=== PATIENT | female | born 1965 | race Caucasian/White ===

== ENCOUNTER → 2017-10-27 | Outpatient (CLI) | payer OTHER ==
[~2017-10-27] MED LIST: ALBU90OI INH; ALBU90OI61 INH; AMIT50; AMIT50 PO; AMOX500 PO; AMPDEX10; AMPDEX10 PO; AMPDEX10CR PO; AMPDEX5; ATEN25 PO; ATEN50; ATEN50 PO; BENTYL20 MG PO; BUTONI; CEPH500 PO; CIPR250 PO; CYCL10 PO; DEXA2 PO; DICY20 PO; DIPH50 PO; DOXY100 PO; ERGO400 PO; ESCI20 PO; ESZO1 PO; ESZO3 PO; FAMO20 PO; HYDMOR2 PO; HYDMOR3S PR; HYDMOR4 PO; HYOS.125 SL; INDO50 PO; Imitrex100 MG PO; Imitrex4 MG/0.5 M SQ; LEVO-T175 MCG; LEVO-T175 MCG PO; LEVOTHYROXINE; LEVSOD100 PO; LEVSOD125 PO; LEVSOD150 PO; LEVSOD25; LOPE2C PO; METO10 PO; MORP10S; MORP10S PR; NAPR500; NAPR500 PO; NAPR550 PO; ONDA4 PO; ONDA4ODT; ONDA8ODT MM; OSCIMIN SL0.125 MG SL; OXYACE5T PO; OXYC10TA19 PO; OXYC5 PO; PRED10 PO; PRED20 PO; PREG75 PO; PROM25; PROM25 PO; PROM25S PR; PROP120ER; Prednisone20 MG PO; RANI150 PO; RXNAPNA550 PO; RXOXYACE PO; SULTRIDS PO; SUMA25 PO; SUMA6I; SUMA6I SC; SUMATRIPTAN; SUMATRIPTAN SQ; Synthroid50 MCG PO; TOPAMAX; TOPI25; TRAM50 PO; Tenormin50 MG PO; ZOLP10 PO; Zocor PO; Zofran Odt4 MG SL; [UNRECOGNIZED DRUG - OTHER]; [UNRECOGNIZED DRUG - REMARK]
== END | disposition home or self-care (01) ==
LOC: PLD 07:22
DX: R31.9 Hematuria, unspecified (principal)
CPT/HCPCS: 88108

== ENCOUNTER 2017-11-24 07:00 | Emergency (ER) | payer OTHER ==
[~2017-11-24] VITALS: Ht 175.3 cm; Wt 124.7 kg
[~2017-11-24 07:00] MED LIST changes: -AMPDEX10 PO; -Imitrex100 MG PO; -LEVO-T175 MCG PO; -Synthroid50 MCG PO; -Tenormin50 MG PO
[2017-11-24] MEDS ORDERED: Imitrex100 MG PO (07:29)
[2017-11-24] MEDS ORDERED: AMPDEX10 PO (07:29)
[2017-11-24] MEDS ORDERED: ESZO3 PO (07:32)
[2017-11-24 09:29] LABS: Anion Gap 8 mmol/L (6-16); Blood Urea Nitrogen 8 mg/dL (8-24); Bun/Creatinine Ratio 9.2 (12.0-20.0); CO2, Blood 20 mmol/L (21-32); Calcium, Blood 9.1 mg/dL (8.5-10.1); Chloride, Blood 109 mmol/L (98-108); Creatinine, Blood 0.87 mg/dL (0.40-1.00); Glomerular Filtration Rate >60 (60-); Glucose, Blood 103 mg/dL (70-99); Potassium, Blood 3.7 mmol/L (3.5-5.5); Sodium, Blood 137 mmol/L (136-145)
[2017-11-24 10:06] LABS: BASOPHILS ABSOLUTE AUTO 0.02 K/mm3 (0.00-0.23); BASOPHILS PERCENT AUTO 0 % (0-2); EOSINOPHILS ABSOLUTE AUTO 0.24 K/mm3 (0.00-0.68); EOSINOPHILS PERCENT AUTO 3 % (0-6); Hematocrit 52.1 % (33.0-51.0); Hemoglobin 17.8 g/dL (11.5-16.0); IMMATURE GRAN ABSOLUTE AUTO 0.03 K/mm3 (0.00-0.10); IMMATURE GRAN PERCENT AUTO 0 % (0-1); LYMPHOCYTES ABSOLUTE AUTO 1.38 K/mm3 (0.84-5.20); LYMPHOCYTES PERCENT AUTO 20 % (21-46); MONOCYTES PERCENT AUTO 7 % (4-13); Mean Corpuscular HGB 29.9 pg (26.0-34.0); Mean Corpuscular HGB Conc 34.2 g/dL (31.5-36.5); Mean Corpuscular Volume 87 fL (80-100); NEUTROPHILS PERCENT AUTO 69 % (41-73); RDW Coefficient Variation 13.2 % (11.7-14.2); Red Blood Cell Count 5.96 M/mm3 (3.80-5.20); White Blood Cell Count 7.07 K/mm3 (4.00-11.30)
[2017-11-24] MEDS ORDERED: LEVO-T175 MCG PO (10:06)
[2017-11-24] MEDS ORDERED: ALBU90OI INH (10:06)
[2017-11-24 10:24] LABS: Mean Platelet Volume 10.9 fL (9.1-12.4)
[2018-01-30] MEDS ORDERED: LEVO-T175 MCG PO (22:10)
[2018-03-31] MEDS ORDERED: PROM25 PO (07:40)
[2018-03-31] MEDS ORDERED: CYCL10 PO (10:12)
[2018-07-18] MEDS ORDERED: Tenormin50 MG PO (21:42)
[2018-07-18] MEDS ORDERED: Synthroid50 MCG PO (21:42)
== END 2017-11-24 11:00 | disposition home or self-care (01) ==
LOC: ER 07:00
PROVIDERS: Emergency Medicine
DX: J40 Bronchitis, not specified as acute or chronic (principal); J98.01 Acute bronchospasm; E03.9 Hypothyroidism, unspecified; Z88.8 Allergy status to other drugs, medicaments and biological substances; Z79.899 Other long term (current) drug therapy; G43.909 Migraine, unspecified, not intractable, without status migrainosus
CPT/HCPCS: 36415; 71046; 80048; 84439; 84443; 85025; 94640; 99283

== ENCOUNTER → 2019-01-18 | Outpatient (CLI) | payer OTHER ==
[~2019-01-18] MED LIST changes: +AMPDEX10 PO; +Imitrex100 MG PO; +LEVO-T175 MCG PO; +Synthroid50 MCG PO; +Tenormin50 MG PO
== END | disposition home or self-care (01) ==
LOC: LAB 10:07 → LAB SHORT 10:07
DX: B02.9 Zoster without complications (principal)
CPT/HCPCS: 87254

== ENCOUNTER 2020-09-22 08:36 | Inpatient (IN) | payer OTHER ==
[~2020-09-22] VITALS: Ht 175.3 cm; Wt 141.9 kg
[~2020-09-22 08:36] MED LIST changes: -Imitrex100 MG PO
[2020-09-22] MEDS ORDERED: ATEN50 PO (08:53)
[2020-09-22] MEDS ORDERED: EUTHYROX125 MCG PO (08:53)
[2020-09-22] MEDS ORDERED: ONDA4 SL (08:54)
[2020-09-22] MEDS ORDERED: SUMA25 PO (08:54)
[2020-09-22 09:17] LABS: Source, Urine Clean Catch
[2020-09-22 09:27] LABS: Appearance, Urine Clear (Clear); Bilirubin, Urine Neg (Neg); Blood, Urine 1+ (Neg); Color, Urine Yellow (P-Yellow); Glucose Qualitative, Urine Neg (Neg); Ketones, Urine Neg (Neg); Leukocyte Esterase, Urine 1+ (Neg); Nitrite, Urine Neg (Neg); Protein, Urine Neg (Neg); Urobilinogen, Urine NORM (Normal)
[2020-09-22 09:37] LABS: Bacteria Mod /hpf; Red Blood Cells, Urine 0-2 /hpf (0-2); Squamous Epithelial Cells Few /hpf (Few)
[2020-09-22 10:18] LABS: BASOPHILS ABSOLUTE AUTO 0.03 K/mm3 (0.00-0.23); BASOPHILS PERCENT AUTO 0 % (0-2); EOSINOPHILS ABSOLUTE AUTO 0.03 K/mm3 (0.00-0.68); EOSINOPHILS PERCENT AUTO 0 % (0-6); Hematocrit 51.8 % (33.0-51.0); IMMATURE GRAN ABSOLUTE AUTO 0.07 K/mm3 (0.00-0.10); IMMATURE GRAN PERCENT AUTO 1 % (0-1); LYMPHOCYTES ABSOLUTE AUTO 1.25 K/mm3 (0.84-5.20); LYMPHOCYTES PERCENT AUTO 8 % (21-46); MONOCYTES ABSOLUTE AUTO 0.93 K/mm3 (0.16-1.47); MONOCYTES PERCENT AUTO 6 % (4-13); Mean Corpuscular HGB 30.2 pg (26.0-34.0); Mean Corpuscular HGB Conc 32.8 g/dL (31.5-36.5); Mean Corpuscular Volume 92 fL (80-100); NEUTROPHILS ABSOLUTE AUTO 12.81 K/mm3 (1.96-9.15); NEUTROPHILS PERCENT AUTO 85 % (41-73); RDW Coefficient Variation 13.2 % (11.7-14.2); RDW Standard Deviation 44.4 fL (35.1-46.3); Red Blood Cell Count 5.62 M/mm3 (3.80-5.20); White Blood Cell Count 15.12 K/mm3 (4.00-11.30)
[2020-09-22 10:26] LABS: Mean Platelet Volume 10.2 fL (9.1-12.4); Platelet Count 232 K/mm3 (150-400)
[2020-09-22 10:32] LABS: Alanine Aminotransfer (ALT/SGP 46 U/L (12-78); Albumin, Blood 3.5 g/dL (3.4-5.0); Albumin/Globulin Ratio 0.9 (0.8-1.8); Alk Phos 129 U/L (50-136); Anion Gap 8 mmol/L (6-16); Aspartate Aminotrans (AST/SGOT 25 U/L (12-37); Bilirubin, Total 0.7 mg/dL (0.1-1.0); Blood Urea Nitrogen 15 mg/dL (8-24); Bun/Creatinine Ratio 18.5 (12.0-20.0); CO2, Blood 25 mmol/L (21-32); Calcium, Blood 9.3 mg/dL (8.5-10.1); Chloride, Blood 105 mmol/L (98-108); Creatinine, Blood 0.81 mg/dL (0.40-1.00); Glomerular Filtration Rate >60 (60-); Glucose, Blood 129 mg/dL (70-99); Potassium, Blood 4.1 mmol/L (3.5-5.5); Sodium, Blood 138 mmol/L (136-145); Total Protein, Blood 7.5 g/dL (6.4-8.2)
[2020-09-22] MEDS ORDERED: Imitrex100 MG PO (12:24)
[2020-09-22 17:08] LABS: Campylobacter Sp Not Detected (NOT DETECT); Plesiomonas Shigelloides Not Detected (NOT DETECT)
[2020-09-22 17:09] LABS: Adenovirus F 40/41 Not Detected (NOT DETECT); Astrovirus Not Detected (NOT DETECT); Cryptosporidium Not Detected (NOT DETECT); Cyclospora Cayetanensis Not Detected (NOT DETECT); E. Coli O157 Not Detected (NOT DETECT); Entamoeba Histolytica Not Detected (NOT DETECT); Enteroaggregative E. coli-EAEC Not Detected (NOT DETECT); Enteropathogenic E. coli-EPEC Detected (NOT DETECT); Enterotoxigenic E. coli-ETEC Not Detected (NOT DETECT); Giardia Lamblia Not Detected (NOT DETECT); Norovirus GI/GII Not Detected (NOT DETECT); Rotavirus A Not Detected (NOT DETECT); Salmonella Sp Not Detected (NOT DETECT); Sapovirus Not Detected (NOT DETECT); Shiga Toxin-prod E. coli-STEC Not Detected (NOT DETECT); Shigella/Enteroin E. coli-EIEC Not Detected (NOT DETECT); Vibrio Cholerae Not Detected (NOT DETECT); Vibrio Sp Not Detected (NOT DETECT); Yersinia Enterocolitica Not Detected (NOT DETECT)
--- NOTE | 2020-09-22 17:14 | NUR ---
ER ADMIT APPROX 1300 PT ARRIVE TO VIA GURNEY, ABLE TO AMBULATE IND TO BED. STATE WEAKNESS/FATIGUE X 1 WEEK, STATE LOWER ABDOMINAL PAIN/CRAMPING THAT SHE R/T CONSTIPATION HOWEVER STATE PASSED HARD STOOL THEN 0200 THIS AM SHE HAD BLOODY RED LOOSE STOOLS, DECIDED TO GO TO ER. ROCK DRILL OPERATOR REPORT GAVE IV ANTIBX ROCEPHIN & UNASYN. STATE POOR IV ACCESS TO R HAND & L BREAST. ATTEMPTING TO INFUSE NS @ 2OO ML/HR. SECOND WATCH SERGEANT NOTIFY ICU, NURSES UP TO START L POWERGLIDE IV. PRN FENTANYL 25MCG GIVEN FOR PAIN RELIEF APPROX Q2, ZOFRAN GIVEN FOR NAUSEA RELIEF. PT STATE MIGRAINE H/A, DR GARDNER NOTIFIED, WILL ORDER IMITREX. ICE PACK PROVIDED. GI PANEL/STOOL SAMPLE COLLECTED/SENT, STOOL DRK, LOOSE, RED/BLOODY. VSS. LACTIC ACID WNL @ THIS TIME. PT IS PLEASANT/COOPERATIVE, APPRECIATIVE.
[2020-09-23 04:53] LABS: Hematocrit 48.9 % (33.0-51.0); Hemoglobin 15.5 g/dL (11.5-16.0); Mean Corpuscular HGB Conc 31.7 g/dL (31.5-36.5); Mean Corpuscular Volume 95 fL (80-100); Platelet Count 229 K/mm3 (150-400); RDW Coefficient Variation 13.3 % (11.7-14.2); RDW Standard Deviation 47.1 fL (35.1-46.3); Red Blood Cell Count 5.16 M/mm3 (3.80-5.20); White Blood Cell Count 13.08 K/mm3 (4.00-11.30)
[2020-09-23 05:12] LABS: Anion Gap 4 mmol/L (6-16); Blood Urea Nitrogen 9 mg/dL (8-24); Bun/Creatinine Ratio 10.3 (12.0-20.0); CO2, Blood 30 mmol/L (21-32); Calcium, Blood 9.4 mg/dL (8.5-10.1); Chloride, Blood 107 mmol/L (98-108); Creatinine, Blood 0.87 mg/dL (0.40-1.00); Glomerular Filtration Rate >60 (60-); Glucose, Blood 159 mg/dL (70-99); Potassium, Blood 4.4 mmol/L (3.5-5.5); Sodium, Blood 141 mmol/L (136-145)
--- NOTE | 2020-09-23 05:20 | NUR ---
SUMMARY PT ARRIVED TO ROOM IN NO DISTRESS. PT TX FOR DISCOMFORT PER EMAR. PT HAS SLEPT T/O SHIFT COMFORTABLY. CALL LIGHT IN REACH AND BED ALARM ON.
--- NOTE | 2020-09-23 19:49 | NUR ---
SUMMARY PT CONTINUES TO STATE LOWER ABD CRAMPING PAIN w OCCASIONAL NAUSEA. STOOLS CONTINUE LOOSE/MUCOUSY BLOODY RED. SHE STATE FREQUENCY OF BM'S DECREASED SOMEWHAT FROM PREVIOUS DAY. WBC 13, IV ANTIBX CONT. HAVE GIVEN FENTANYL 50MCG MULT X'S FOR PAIN CONTROL/RELEIF. BP HAS BEEN SOMEWHAT ELEVATED, DR GARDNER RESTART ATENOLOL. SHE HAD MIGRAINE LATE AFTERNOON, PRN IMITREX GIVEN. SHE IS A/O X4, PLEASANT/COOPERATIVE.
--- NOTE | 2020-09-23 22:16 | NUR ---
PT STILL HAVING 8/ MIGRAINE MARTÍNEZ W/ASSOCIATED NAUSEA. NOTIFIED W/RX RECIEVED TO ADMINISTER ADDITIONAL DOSE OF IMMITREX 6 MG SC NOW X1. WILL GIVE W/NAUSEA MEDS WHEN AVAILABLE FROM PHARMACY.
--- NOTE | 2020-09-23 22:20 | NUR ---
DURING ASSESSMENT, PT REPORTED "SORES AND PAIN TO PAULO AREA FROM SCALDING HERSELF W/URINE". SHE DESCRIBED THAT SHE OFTEN WEARS HER SAME PANTS TO BED THAT SHE'S WORN ALL DAY AND OCCASIONALLY HAS INCONTINENCE ISSUES. PT SAID SHE'D MENTIONED THIS TO THE ER STAFF AND USES DESITIN CREAM AT HOME BUT IT'S PROGRESSIVELY WORSENED. PAULO AREA WAS OBSERVED AND SHE APPEARS TO HAVE CELLULITIS (RED, HOT, FIRM) EXTENDING FROM HER L.LABIA POSTERIOR TO HER L.BUTTOCK CHEEK ALONG THE MIDLINE. SHE HAS X2 SMALL SCABS TO THE BASE OF EACH BUTTOCKS POSTERIOR TO HER LABIA. PT DOESN'T HAVE ANY RECOLLECTIONS HOW/WHEN THESE SORES DEVELOPED BUT ADMITTED SHE'D RECENTLY "PICKED AT THEM". THERE WAS NO NOTED DOCUMENTATION OF THESE FINDINGS SO WAS MADE AWARE. TOPICAL CREAM LIKELY WOULDN'T BE SUFFICIENT AND STATED PREVIOUSLY RX'D ROCEPHIN SHOULD BE ADEQUATE TX FOR CELLULITIS. SHE IS SCHEDULED TO HAVE A DOSE AT [facility]. HE DIDN'T ORDER ANYTHING NEW AT THIS TIME BUT WANTS TO ENSURE THE DAY HOSPITALIST IS AWARE FOR F/U DIAGNOSTICS AND TREATMENT. WILL DISCUSS W/DAY RN.
--- NOTE | 2020-09-24 05:31 | NUR ---
SUMMARY: PT A/OX4, PLEASANT AND COOPERATIVE W/CARE AND INDEPENDENT IN ROOM. ABDO PAIN AND NAUSEA ARE PERSISTENT AND SHE NEVER REPORTS BETTER THAN 6/10 PAIN CONTROL. SHE ALSO HAD A MIGRAINE THIS SHIFT W/AN ADDITIONAL DOSE OF IMITREX RX'D BY AND RECIEVED FOR IMPROVED EFFECT. PT REQUIRED FENTANYL 50 MCG IV APPROX Q2-3 HOURS AND SHE KEEPS ICE PACKS TO HER NECK AT ALL TIMES. ALTERNATING DOSES OF REGLAN AND ZOFRAN PROVIDED FOR ONGOING NAUSEA FREQ ABLE PER EMAR. IV ABX GIVEN THEN SL. SHE REMAINS NSR AT 80'S BPM PER TELEMETRY AND TOLERATED CPAP AT HS. NO ACUTE CHANGES. PT BEGAN SHIFT HYPERTENSIVE BUT SHE WAS VERY NAUSEOUS AND PAINFUL AT THE TIME AND BP IMPROVED W/SYMPTOM MANAGEMENT. LATONYA AND REPORT TO DAY RN.
[2020-09-24 06:14] LABS: Hematocrit 47.6 % (33.0-51.0); Hemoglobin 16.1 g/dL (11.5-16.0); Mean Corpuscular HGB 31.2 pg (26.0-34.0); Mean Corpuscular HGB Conc 33.8 g/dL (31.5-36.5); Mean Corpuscular Volume 92 fL (80-100); Mean Platelet Volume 10.3 fL (9.1-12.4); Platelet Count 190 K/mm3 (150-400); RDW Coefficient Variation 13.2 % (11.7-14.2); Red Blood Cell Count 5.16 M/mm3 (3.80-5.20); White Blood Cell Count 11.05 K/mm3 (4.00-11.30)
[2020-09-24 06:34] LABS: Anion Gap 3 mmol/L (6-16); Blood Urea Nitrogen 9 mg/dL (8-24); Bun/Creatinine Ratio 10.5 (12.0-20.0); CO2, Blood 29 mmol/L (21-32); Calcium, Blood 9.4 mg/dL (8.5-10.1); Chloride, Blood 106 mmol/L (98-108); Creatinine, Blood 0.85 mg/dL (0.40-1.00); Glomerular Filtration Rate >60 (60-); Glucose, Blood 139 mg/dL (70-99); Potassium, Blood 3.7 mmol/L (3.5-5.5); Sodium, Blood 138 mmol/L (136-145)
--- NOTE | 2020-09-24 19:18 | NUR ---
SHIFT SUMMARY: PAIN BETTER CONTROLLED THIS AFTERNOON AND EVENING WITH CHANGE OF PAIN MED TO OXYCODONE. DENIED FURTHER NAUSEA AFTER REGLAN DOSE AT ~ 1500. TOLERATING DIET WITHOUT VOMITING, BUT DID ENDORSE SOME PAIN AFTER DINNER. NO EVENTS ON TELEMETRY, SR IN 70-80'S. GAVE IMITREX X 1 FOR MIGRAINE, WHICH PT THINKS WAS BROUGHT ON BY FENTANYL. GETTING UP TO BR INDEPENDENTLY.
--- NOTE | 2020-09-25 04:43 | NUR ---
SHIFT SUMMARY ADMITTED FOR ACUTE COLITIS. FULL CODE. HOPEFUL FOR DC TODAY. PAIN IS CONTROLLED WITH ORAL PAIN MEDICATION. ANTI NAUSEA MEDICATION REQUESTED ONCE THIS SHIFT. TELEMETRY: NSR @ 72 BPM. PT DID C/O MIGRAINE THIS SHIFT, IMITREX GIVEN. POWERGLIDE IS IN PLACE ON LUE. NO NEW CONCERNS THIS SHIFT
[2020-09-25] MEDS ORDERED: Dicyclomine HCl10 MG PO (12:17)
--- NOTE | 2020-09-25 14:52 | NUR ---
PATIENT DISCHARGED TO HOME ACCOMPANIED BY HER DAUGHTER. POWERGLIDE IV REMOVED WITHOUT INCIDENT, NO BLEEDING NOTED. PATIENT VERBALIZED UNDERSTANDING OF ALL D/C INSTRUCTIONS AND ALL QUESTIONS ANSWERED TO HER SATISFACTION. LEFT UNIT VIA W/C AT 1418. NO PERSONAL BELONGINGS LEFT BEHIND IN THE ROOM.
--- NOTE | 2020-09-25 14:58 | NUR ---
Met pt. getting resdy to go home , pt. is dicharged , prayed for her and bleswed her
== END 2020-09-25 14:18 | disposition home or self-care (01) | DRG 872 ==
LOC: ER 08:36 → MEDS 08:37
PROVIDERS: Emergency Medicine; ADMIT Internal Medicine
DX: A41.51 Sepsis due to Escherichia coli [E. coli] (principal); E87.2 Acidosis; A04.4 Other intestinal Escherichia coli infections; E03.9 Hypothyroidism, unspecified; G43.909 Migraine, unspecified, not intractable, without status migrainosus; R65.20 Severe sepsis without septic shock; Z20.828 Contact with and (suspected) exposure to other viral communicable diseases; Z87.891 Personal history of nicotine dependence
CPT/HCPCS: 0097U; 36415; 74177; 80048; 80053; 81001; 83605; 83690; 85025; 85027; 87077; 87086; 87186; 94762; 96365-59; 96366; 96367; 96368; 96375; 96376; 99284-25; C1751; G0378; J0295; J0696; J2405; J2765; J3010; J3030; J7030; Q9967

== ENCOUNTER 2020-12-23 07:40 | Emergency (ER) | payer OTHER ==
[~2020-12-23] VITALS: Ht 170.2 cm; Wt 145.2 kg
[~2020-12-23 07:40] MED LIST changes: +Dicyclomine HCl10 MG PO; +EUTHYROX125 MCG PO; +Imitrex100 MG PO; +ONDA4 SL
[2020-12-23 09:36] LABS: Source, Urine Clean Catch
[2020-12-23 09:41] LABS: BASOPHILS ABSOLUTE AUTO 0.02 K/mm3 (0.00-0.23); BASOPHILS PERCENT AUTO 0 % (0-2); EOSINOPHILS ABSOLUTE AUTO 0.18 K/mm3 (0.00-0.68); EOSINOPHILS PERCENT AUTO 3 % (0-6); Hematocrit 49.8 % (33.0-51.0); Hemoglobin 16.4 g/dL (11.5-16.0); IMMATURE GRAN ABSOLUTE AUTO 0.02 K/mm3 (0.00-0.10); IMMATURE GRAN PERCENT AUTO 0 % (0-1); LYMPHOCYTES ABSOLUTE AUTO 1.63 K/mm3 (0.84-5.20); LYMPHOCYTES PERCENT AUTO 22 % (21-46); MONOCYTES ABSOLUTE AUTO 0.73 K/mm3 (0.16-1.47); MONOCYTES PERCENT AUTO 10 % (4-13); Mean Corpuscular HGB 30.5 pg (26.0-34.0); Mean Corpuscular HGB Conc 32.9 g/dL (31.5-36.5); Mean Corpuscular Volume 93 fL (80-100); Mean Platelet Volume 9.5 fL (9.1-12.4); NEUTROPHILS ABSOLUTE AUTO 4.76 K/mm3 (1.96-9.15); NEUTROPHILS PERCENT AUTO 65 % (41-73); Platelet Count 258 K/mm3 (150-400); RDW Coefficient Variation 12.7 % (11.7-14.2); Red Blood Cell Count 5.38 M/mm3 (3.80-5.20); White Blood Cell Count 7.34 K/mm3 (4.00-11.30)
[2020-12-23 09:47] LABS: Bilirubin, Urine Neg (Neg); Blood, Urine 2+ (Neg); Glucose Qualitative, Urine Neg (Neg); Ketones, Urine Neg (Neg); Leukocyte Esterase, Urine Neg (Neg); Nitrite, Urine Neg (Neg); Protein, Urine Neg (Neg); Urobilinogen, Urine NORM (Normal)
[2020-12-23 09:53] LABS: Appearance, Urine Clear (Clear); Color, Urine Yellow (P-Yellow)
[2020-12-23 09:54] LABS: Red Blood Cells, Urine 0-2 /hpf (0-2)
[2020-12-23 09:55] LABS: Bacteria Mod /hpf; Squamous Epithelial Cells Few /hpf (Few)
[2020-12-23 10:04] LABS: Alanine Aminotransfer (ALT/SGP 44 U/L (12-78); Albumin, Blood 3.5 g/dL (3.4-5.0); Albumin/Globulin Ratio 0.9 (0.8-1.8); Alk Phos 116 U/L (50-136); Anion Gap 5 mmol/L (6-16); Aspartate Aminotrans (AST/SGOT 17 U/L (12-37); Bilirubin, Total 0.6 mg/dL (0.1-1.0); Blood Urea Nitrogen 16 mg/dL (8-24); Bun/Creatinine Ratio 20.6 (12.0-20.0); CO2, Blood 25 mmol/L (21-32); Calcium, Blood 9.7 mg/dL (8.5-10.1); Chloride, Blood 110 mmol/L (98-108); Creatinine, Blood 0.78 mg/dL (0.40-1.00); Globulin, Blood 3.9 g/dL (2.2-4.0); Glomerular Filtration Rate >60 (60-); Glucose, Blood 122 mg/dL (70-99); Potassium, Blood 4.7 mmol/L (3.5-5.5); Sodium, Blood 140 mmol/L (136-145); Total Protein, Blood 7.4 g/dL (6.4-8.2)
[2020-12-23] MEDS ORDERED: Reglan10 MG PO (12:10)
[2020-12-23] MEDS ORDERED: Naprosyn500 MG PO (12:10)
== END 2020-12-23 10:30 | disposition home or self-care (01) ==
LOC: ER 07:40
PROVIDERS: Physician Assistant
DX: R10.30 Lower abdominal pain, unspecified (principal); R11.2 Nausea with vomiting, unspecified; Z87.442 Personal history of urinary calculi; Z79.899 Other long term (current) drug therapy; Z88.8 Allergy status to other drugs, medicaments and biological substances
CPT/HCPCS: 36415; 74177; 80053; 81001; 83690; 85025; 85651; 86140; 87077; 87086; 87186; 96374; 96375; 99285-25; J1170; J1885; J2765; Q9967

== ENCOUNTER 2022-04-08 04:54 | Emergency (ER) | payer OTHER ==
[~2022-04-08] VITALS: Ht 170.2 cm; Wt 138.3 kg
[~2022-04-08 04:54] MED LIST changes: +Adderall 5 MG Ta5 MG PO; +EUTHYROX175 MCG PO; +Naprosyn500 MG PO; +Reglan10 MG PO
[2022-04-08 05:55] LABS: BASOPHILS ABSOLUTE AUTO 0.01 K/mm3 (0.00-0.23); BASOPHILS PERCENT AUTO 0 % (0-2); EOSINOPHILS ABSOLUTE AUTO 0.22 K/mm3 (0.00-0.68); EOSINOPHILS PERCENT AUTO 3 % (0-6); Hematocrit 49.6 % (33.0-51.0); Hemoglobin 16.2 g/dL (11.5-16.0); IMMATURE GRAN ABSOLUTE AUTO 0.02 K/mm3 (0.00-0.10); IMMATURE GRAN PERCENT AUTO 0 % (0-1); LYMPHOCYTES ABSOLUTE AUTO 1.93 K/mm3 (0.84-5.20); LYMPHOCYTES PERCENT AUTO 30 % (21-46); MONOCYTES ABSOLUTE AUTO 0.62 K/mm3 (0.16-1.47); MONOCYTES PERCENT AUTO 10 % (4-13); Mean Corpuscular HGB 29.7 pg (26.0-34.0); Mean Corpuscular HGB Conc 32.7 g/dL (31.5-36.5); Mean Corpuscular Volume 91 fL (80-100); Mean Platelet Volume 9.4 fL (9.1-12.4); NEUTROPHILS ABSOLUTE AUTO 3.67 K/mm3 (1.96-9.15); NEUTROPHILS PERCENT AUTO 57 % (41-73); Platelet Count 269 K/mm3 (150-400); RDW Coefficient Variation 12.8 % (11.7-14.2); RDW Standard Deviation 42.6 fL (35.1-46.3); Red Blood Cell Count 5.46 M/mm3 (3.80-5.20); White Blood Cell Count 6.47 K/mm3 (4.00-11.30)
[2022-04-08 06:03] LABS: Albumin, Blood 3.5 g/dL (3.4-5.0); Albumin/Globulin Ratio 0.9 (0.8-1.8); Bilirubin, Total 0.5 mg/dL (0.1-1.0); Bun/Creatinine Ratio 20.7 (12.0-20.0); Calcium, Blood 10.5 mg/dL (8.5-10.1); Creatinine, Blood 0.68 mg/dL (0.40-1.00); Globulin, Blood 3.7 g/dL (2.2-4.0); Potassium, Blood 4.5 mmol/L (3.5-5.5); Total Protein, Blood 7.2 g/dL (6.4-8.2)
[2022-04-08] MEDS ORDERED: PROBIOTIC1 EA13 PO (07:38)
[2022-04-08] MEDS ORDERED: ONDA4ODT MM (07:38)
[2022-04-08] MEDS ORDERED: CIPR500 PO (07:38)
== END 2022-04-08 09:33 | disposition home or self-care (01) ==
LOC: ER 04:54
PROVIDERS: Emergency Medicine
DX: A09 Infectious gastroenteritis and colitis, unspecified (principal); F90.9 Attention-deficit hyperactivity disorder, unspecified type; Z79.899 Other long term (current) drug therapy
CPT/HCPCS: 74177; 80053; 83690; 85025; J2405; J7030; Q9967

== ENCOUNTER 2022-10-23 15:33 | Emergency (ER) | payer OTHER ==
[~2022-10-23] VITALS: Ht 175.3 cm; Wt 136.1 kg
[~2022-10-23 15:33] MED LIST changes: +CIPR500 PO; +Cleocin HCl150 MG PO; +ONDA4ODT MM; +PROBIOTIC1 EA13 PO
[2022-10-23 16:52] LABS: BASOPHILS ABSOLUTE AUTO 0.02 K/mm3 (0.00-0.23); BASOPHILS PERCENT AUTO 0 % (0-2); EOSINOPHILS ABSOLUTE AUTO 0.21 K/mm3 (0.00-0.68); EOSINOPHILS PERCENT AUTO 3 % (0-6); Hematocrit 52.2 % (33.0-51.0); IMMATURE GRAN ABSOLUTE AUTO 0.03 K/mm3 (0.00-0.10); IMMATURE GRAN PERCENT AUTO 0 % (0-1); LYMPHOCYTES ABSOLUTE AUTO 2.23 K/mm3 (0.84-5.20); LYMPHOCYTES PERCENT AUTO 28 % (21-46); MONOCYTES PERCENT AUTO 8 % (4-13); Mean Corpuscular HGB 30.5 pg (26.0-34.0); Mean Corpuscular HGB Conc 34.5 g/dL (31.5-36.5); Mean Corpuscular Volume 89 fL (80-100); Mean Platelet Volume 9.1 fL (9.1-12.4); NEUTROPHILS ABSOLUTE AUTO 4.85 K/mm3 (1.96-9.15); NEUTROPHILS PERCENT AUTO 61 % (41-73); Platelet Count 275 K/mm3 (150-400); RDW Coefficient Variation 12.5 % (11.7-14.2); RDW Standard Deviation 40.8 fL (35.1-46.3); White Blood Cell Count 7.94 K/mm3 (4.00-11.30)
[2022-10-23 17:12] LABS: Albumin, Blood 3.8 g/dL (3.4-5.0); Bilirubin, Total 0.5 mg/dL (0.1-1.0); Bun/Creatinine Ratio 16.5 (12.0-20.0); Calcium, Blood 10.5 mg/dL (8.5-10.1); Creatinine, Blood 0.73 mg/dL (0.40-1.00); Potassium, Blood 3.9 mmol/L (3.5-5.5); Total Protein, Blood 7.8 g/dL (6.4-8.2)
[2022-10-23 19:36] LABS: Source, Urine Clean Catch
[2022-10-23 20:03] LABS: Appearance, Urine Clear (Clear); Bilirubin, Urine Neg (Neg); Blood, Urine 2+ (Neg); Color, Urine Yellow (P-Yellow); Glucose Qualitative, Urine Neg (Neg); Ketones, Urine Neg (Neg); Leukocyte Esterase, Urine Neg (Neg); Nitrite, Urine Neg (Neg); Protein, Urine 2+ (Neg); Urobilinogen, Urine NORM (Normal)
[2022-10-23 20:10] LABS: Bacteria Mod /hpf; Red Blood Cells, Urine 0-2 /hpf (0-2); Squamous Epithelial Cells Rare /hpf (Few); White Blood Cells, Urine 0-2 /hpf (0-5)
[2022-10-23] MEDS ORDERED: ONDA4ODT MM (21:50)
== END 2022-10-23 22:29 | disposition home or self-care (01) ==
LOC: ER 15:33
PROVIDERS: Physician Assistant
DX: R10.30 Lower abdominal pain, unspecified (principal); R19.7 Diarrhea, unspecified; G47.30 Sleep apnea, unspecified; Z79.899 Other long term (current) drug therapy
CPT/HCPCS: 36415; 74177; 80053; 81001; 85025; A9270; J1885; J2405; J7120; Q9967

== ENCOUNTER → 2022-10-29 | Outpatient (CLI) | payer OTHER ==
[2022-10-29 11:08] LABS: Adenovirus F 40/41 Not Detected (NOT DETECT); Astrovirus Not Detected (NOT DETECT); Campylobacter Sp Not Detected (NOT DETECT); Cryptosporidium Not Detected (NOT DETECT); Cyclospora Cayetanensis Not Detected (NOT DETECT); E. Coli O157 Not Detected (NOT DETECT); Entamoeba Histolytica Not Detected (NOT DETECT); Enteroaggregative E. coli-EAEC Not Detected (NOT DETECT); Enteropathogenic E. coli-EPEC Not Detected (NOT DETECT); Enterotoxigenic E. coli-ETEC Not Detected (NOT DETECT); Giardia Lamblia Not Detected (NOT DETECT); Norovirus GI/GII Not Detected (NOT DETECT); Plesiomonas Shigelloides Not Detected (NOT DETECT); Rotavirus A Not Detected (NOT DETECT); Salmonella Sp Not Detected (NOT DETECT); Sapovirus Not Detected (NOT DETECT); Shiga Toxin-prod E. coli-STEC Not Detected (NOT DETECT); Shigella/Enteroin E. coli-EIEC Not Detected (NOT DETECT); Vibrio Cholerae Not Detected (NOT DETECT); Vibrio Sp Not Detected (NOT DETECT); Yersinia Enterocolitica Not Detected (NOT DETECT)
== END | disposition home or self-care (01) ==
LOC: LAB SHORT 06:50
PROVIDERS: Nurse Practitioner Family
DX: R19.7 Diarrhea, unspecified (principal); R10.9 Unspecified abdominal pain
CPT/HCPCS: 87507

== ENCOUNTER → 2022-11-15 | Outpatient (CLI) | payer OTHER ==
[2022-11-15 11:00] LABS: Adenovirus F 40/41 Not Detected (NOT DETECT); Astrovirus Not Detected (NOT DETECT); Campylobacter Sp Not Detected (NOT DETECT); Cryptosporidium Not Detected (NOT DETECT); Cyclospora Cayetanensis Not Detected (NOT DETECT); E. Coli O157 Not Detected (NOT DETECT); Entamoeba Histolytica Not Detected (NOT DETECT); Enteroaggregative E. coli-EAEC Not Detected (NOT DETECT); Enteropathogenic E. coli-EPEC Not Detected (NOT DETECT); Enterotoxigenic E. coli-ETEC Not Detected (NOT DETECT); Giardia Lamblia Not Detected (NOT DETECT); Norovirus GI/GII Not Detected (NOT DETECT); Plesiomonas Shigelloides Not Detected (NOT DETECT); Rotavirus A Not Detected (NOT DETECT); Salmonella Sp Not Detected (NOT DETECT); Sapovirus Not Detected (NOT DETECT); Shiga Toxin-prod E. coli-STEC Not Detected (NOT DETECT); Shigella/Enteroin E. coli-EIEC Not Detected (NOT DETECT); Vibrio Cholerae Not Detected (NOT DETECT); Vibrio Sp Not Detected (NOT DETECT); Yersinia Enterocolitica Not Detected (NOT DETECT)
== END | disposition home or self-care (01) ==
LOC: LAB SHORT 08:00 → LAB 08:00
PROVIDERS: Nurse Practitioner Family
DX: R19.7 Diarrhea, unspecified (principal); R11.2 Nausea with vomiting, unspecified; R10.9 Unspecified abdominal pain
CPT/HCPCS: 87338; 87507

== ENCOUNTER 2023-01-15 08:37 | Emergency (ER) | payer OTHER ==
[~2023-01-15] VITALS: Ht 175.3 cm; Wt 133.8 kg
[2023-01-15] MEDS ORDERED: AMITRIPTYLINE H25 MG PO (09:21)
[2023-01-15 10:05] LABS: BASOPHILS ABSOLUTE AUTO 0.03 K/mm3 (0.00-0.23); BASOPHILS PERCENT AUTO 1 % (0-2); EOSINOPHILS PERCENT AUTO 4 % (0-6); Hematocrit 45.2 % (33.0-51.0); Hemoglobin 15.8 g/dL (11.5-16.0); IMMATURE GRAN ABSOLUTE AUTO 0.07 K/mm3 (0.00-0.10); IMMATURE GRAN PERCENT AUTO 1 % (0-1); LYMPHOCYTES ABSOLUTE AUTO 0.91 K/mm3 (0.84-5.20); LYMPHOCYTES PERCENT AUTO 18 % (21-46); MONOCYTES PERCENT AUTO 12 % (4-13); Mean Corpuscular HGB 30.2 pg (26.0-34.0); Mean Corpuscular Volume 86 fL (80-100); NEUTROPHILS ABSOLUTE AUTO 3.24 K/mm3 (1.96-9.15); NEUTROPHILS PERCENT AUTO 64 % (41-73); RDW Coefficient Variation 12.5 % (11.7-14.2); RDW Standard Deviation 39.3 fL (35.1-46.3); Red Blood Cell Count 5.24 M/mm3 (3.80-5.20); White Blood Cell Count 5.05 K/mm3 (4.00-11.30)
[2023-01-15 10:16] LABS: Alanine Aminotransfer (ALT/SGP 55 U/L (12-78); Albumin, Blood 3.4 g/dL (3.4-5.0); Albumin/Globulin Ratio 0.9 (0.8-1.8); Alk Phos 136 U/L (50-136); Anion Gap 0 mmol/L (6-16); Aspartate Aminotrans (AST/SGOT 35 U/L (12-37); Bilirubin, Total 0.5 mg/dL (0.1-1.0); Blood Urea Nitrogen 7 mg/dL (8-24); Bun/Creatinine Ratio 11.4 (12.0-20.0); C-REACTIVE PROTEIN, EXT RANGE >19.000 mg/dL (0.000-0.300); CO2, Blood 27 mmol/L (21-32); Chloride, Blood 110 mmol/L (98-108); Creatinine, Blood 0.62 mg/dL (0.40-1.00); Globulin, Blood 3.7 g/dL (2.2-4.0); Glomerular Filtration Rate 104 (60-); Glucose, Blood 140 mg/dL (70-99); Sodium, Blood 137 mmol/L (136-145); Total Protein, Blood 7.1 g/dL (6.4-8.2)
[2023-01-15 10:31] LABS: Mean Platelet Volume 9.4 fL (9.1-12.4); Platelet Count 220 K/mm3 (150-400)
[2023-01-15] MEDS ORDERED: DIPATR PO (11:04)
[2023-01-15 11:40] VITALS: BP 148/93
== END 2023-01-15 11:20 | disposition home or self-care (01) ==
LOC: ER 08:37
PROVIDERS: Physician Assistant
DX: R19.7 Diarrhea, unspecified (principal); R11.10 Vomiting, unspecified; Z79.899 Other long term (current) drug therapy; G43.909 Migraine, unspecified, not intractable, without status migrainosus; G47.30 Sleep apnea, unspecified
CPT/HCPCS: 36415; 80053; 83690; 83735; 85025; 86140; 96360; 99284-25; A9270; J7030

== ENCOUNTER → 2023-06-18 | Outpatient (CLI) | payer OTHER ==
[~2023-06-18] MED LIST changes: +AMITRIPTYLINE H25 MG PO; +DIPATR PO
[2023-06-20 08:15] LABS: C DIFFICILE DNA NEGATIVE (Negative)
== END ==
LOC: LAB SHORT 14:39 → LAB 14:39
DX: R19.7 Diarrhea, unspecified (principal); R15.9 Full incontinence of feces; R11.2 Nausea with vomiting, unspecified; K21.9 Gastro-esophageal reflux disease without esophagitis
CPT/HCPCS: 87493

== ENCOUNTER 2023-08-01 10:38 | Emergency (ER) | payer OTHER ==
[~2023-08-01] VITALS: Ht 175.3 cm; Wt 131.5 kg
[2023-08-01 10:44] VITALS: BP 147/90
[2023-08-01] MEDS ORDERED: DULOXETINE HCL60 M1 PO (10:50)
[2023-08-01] MEDS ORDERED: HYDROCODONE-AC1 EAC7 PO ×2 (10:51→12:57)
[2023-08-01] MEDS ORDERED: Norco 10-325 T1 EACH PO (12:58)
[2023-08-01] MEDS ORDERED: HYDACE10B PO (13:00)
== END 2023-08-01 13:11 | disposition home or self-care (01) ==
LOC: ER 10:38
DX: S22.41XA Multiple fractures of ribs, right side, initial encounter for closed fracture (principal); W22.8XXA Striking against or struck by other objects, initial encounter; Y93.K1 Activity, walking an animal; Z79.890 Hormone replacement therapy; Z79.899 Other long term (current) drug therapy
CPT/HCPCS: 71101; 96372; 99283-25; J1885

== ENCOUNTER → 2024-06-15 | Outpatient (CLI) | payer OTHER ==
[~2024-06-15] MED LIST changes: +DULOXETINE HCL60 M1 PO; +HYDACE10B PO; +HYDROCODONE-AC1 EAC7 PO; +Norco 10-325 T1 EACH PO
[2024-06-15 12:06] LABS: Calcium, Urine 34.1 mg/dL (< 17.5); Calcium, Urine Calculation 443.3 mg/24hrs (42.0-353.0)
[2024-06-19 09:38] LABS: CORTISOL,U FREE - RATIO TO CRT 24.77 ug/g CRT; CORTISOL,URINE FREE - PER 24H 34.4 ug/d (<=45.0); CREATININE,URINE - PER 24H 1391 mg/d (500-1400); CREATININE,URINE - PER VOLUME 107 mg/dL; HOURS COLLECTED 24 hr; TOTAL VOLUME 1300 mL
== END ==
LOC: LAB 07:20 → LAB SHORT 07:20
PROVIDERS: Internal Medicine Endocrinology, Diabetes & Metabolism
DX: E83.52 Hypercalcemia (principal); E66.01 Morbid (severe) obesity due to excess calories; Z68.41 Body mass index [BMI] 40.0-44.9, adult
CPT/HCPCS: 81050; 82340; 82530; 82570